=== PATIENT | female | born 1960 | race Caucasian/White ===

== ENCOUNTER 2020-03-13 08:43 | Inpatient (IN) | payer OTHER ==
[2020-03-13] VITALS (13 sets, daily range): BP systolic 128–168; BP diastolic 65–89
[~2020-03-13] VITALS: Ht 162.6 cm; Wt 66.0 kg
--- NOTE | 2020-03-13 09:04 | NUR ---
Lab at bedside.
[2020-03-13 09:23] LABS: BASOPHILS % (AUTO) 0.2 % (0-1); EOSINOPHILS % (AUTO) 0 % (0-6); HEMATOCRIT 40.3 % (35.0-45.0); HEMOGLOBIN 13.3 g/dl (12.0-16.0); LYMPHOCYTES # (AUTO) 1.2 X10'3 (1.1-4.8); LYMPHOCYTES % (AUTO) 5.8 % (21-51); MEAN CORPUSCULAR HEMOGLOBIN 29.9 PG (27.0-31.0); MEAN CORPUSCULAR VOLUME 90.5 FL (78-98); MEAN PLATELET VOLUME 6.8 FL (7.4-10.4); MONOCYTES # (AUTO) 2.2 X10'3 (0-0.9); NEUTROPHILS # (AUTO) 16.5 X10'3 (1.8-7.7); PLATELET COUNT 377 X10'3 (140-440); RED BLOOD COUNT 4.45 X10'6 (4.20-5.60); RED CELL DISTRIBUTION WIDTH 14.9 % (11.5-14.5); WHITE BLOOD COUNT 19.9 X10'3 (4.5-11.0)
[2020-03-13 09:26] LABS: URINE HCG NEGATIVE (NEG)
[2020-03-13 09:36] LABS: ALANINE AMINOTRANSFERASE 26 U/L (12-78); ALBUMIN 3.9 G/DL (3.4-5.0); ALKALINE PHOSPHATASE 83 IU/L (46-116); ANION GAP 10 (8-16); ASPARTATE AMINO TRANSFERASE 33 U/L (10-37); BILIRUBIN,TOTAL 1.2 MG/DL (0.1-1.0); BLOOD UREA NITROGEN 12 MG/DL (7-18); BUN/CREATININE RATIO 14.8 (6.6-38.0); CALCIUM 9.2 MG/DL (8.5-10.1); CHLORIDE 97 MMOL/L (99-107); CREATININE 0.81 MG/DL (0.40-0.90); GLUCOSE 142 MG/DL (70-104); LIPASE 104 U/L (73-393); POTASSIUM 3.3 MMOL/L (3.5-5.1); SODIUM 132 MMOL/L (135-145); TOTAL CARBON DIOXIDE 25.2 MMOL/L (24-32); eGFR 73 ML/MIN
[2020-03-13] MEDS ORDERED: ondansetron/PF 4mg/2ml inj IV ONE (09:40)
[2020-03-13] MEDS ORDERED: normal saline 1000ML IV soln IVB ONE (09:40)
[2020-03-13 09:58] LABS: PLATELET ESTIMATE NORMAL; TOTAL CELLS COUNTED 100
[2020-03-13 09:59] LABS: LARGE PLATELETS FEW
[2020-03-13] MEDS ORDERED: ceFOXitin 1 GM/D5W 50mL IVPB 1,000 GM in normal saline 100ml IV soln 100 ML IV ONE (10:00)
[2020-03-13] MEDS ORDERED: ceFOXitin 1 GM/D5W 50mL IVPB 50 ML IV ONE (10:05)
--- NOTE | 2020-03-13 10:07 | NUR ---
Pt refusing Zofran at this time.
[2020-03-13 10:28] LABS: CLARITY,URINE CLEAR (Clear); COLOR,URINE YELLOW (Yellow); GLUCOSE, URINE NEGATIVE (Neg); KETONES,URINE 15 mg/dl (Neg); LEUKOCYTE ESTERASE ,URINE NEGATIVE (Neg); NITRITES, URINE NEGATIVE (Neg); OCCULT BLOOD,URINE MODERATE (Neg); PROTEIN,URINE NEGATIVE (Neg); UROBILINOGEN,URINE 0.2 E.U/dL (0.2-1.0)
[2020-03-13 10:42] LABS: UA COLLECTION TYPE CLN CATCH MIDSTREAM
[2020-03-13 10:44] LABS: SQUAMOUS EPITHELIAL CELL,UR FEW /LPF (FEW)
[2020-03-13 10:46] LABS: BACTERIA,URINE 1+ /HPF (Neg); MUCUS STRANDS NONE SEEN /LPF (Neg); WBC,URINE 0-4 /HPF (0-4)
[2020-03-13 11:45] LABS: PARTIAL THROMBOPLASTIN TIME 31 SECONDS (22-32)
--- NOTE | 2020-03-13 12:06 | NUR ---
Pt's daughter is Maria E Katz [phone]. She is able to have information about the patient.
[2020-03-13] MEDS ORDERED: acetaminophen 650mg rectal suppository RC PRN (12:20)
[2020-03-13] MEDS ORDERED: HYDROcodone/acetaminophen 10/325mg tab PO PRN ×2 (12:20→16:45)
[2020-03-13] MEDS ORDERED: magnesium 4gm in 100ml NS 100 ML IV PRN (12:20)
[2020-03-13] MEDS ORDERED: ondansetron/PF 4mg/2ml inj IV PRN ×2 (12:20→15:00)
[2020-03-13] MEDS ORDERED: magnesium Cl slow-release 64mg tablet PO PRN (12:20)
[2020-03-13] MEDS ORDERED: morphine 2 MG/ML inj. syringe IV PRN ×3 (12:20→15:00)
[2020-03-13] MEDS ORDERED: diphenhydrAMINE 25mg capsule PO PRN (12:20)
[2020-03-13] MEDS ORDERED: magnesium 2GM in 50ml NS 50 ML IV PRN (12:20)
[2020-03-13] MEDS ORDERED: mag hydrox/Alum hydrox/simeth 30ml oral suspension PO PRN (12:20)
[2020-03-13] MEDS ORDERED: potassium Cl 20 mEq SR tablet PO PRN (12:20)
[2020-03-13] MEDS ORDERED: metoclopramide 5 mg/ml inj IV PRN (12:20)
[2020-03-13] MEDS ORDERED: bisacodyl 10mg suppository rectal RC PRN (12:20)
[2020-03-13] MEDS ORDERED: potassium CL 10mEq/100ml bag 100 ML IV PRN ×2 (12:20)
[2020-03-13] MEDS ORDERED: acetaminophen 325mg tablet PO PRN ×3 (12:20→12:55)
[2020-03-13] MEDS ORDERED: magnesium hydroxide 30ml (MOM) UD suspension PO PRN (12:20)
[2020-03-13] MEDS ORDERED: LEVO125T PO (12:21)
--- NOTE | 2020-03-13 12:34 | NUR ---
Let pt know that the hospitalist has excepted her for inpatient and that we are waiting on a bed assignment for her. Pt verbalized understanding and denies any needs at this time.
[2020-03-13 12:49] LABS: HEMOGLOBIN A1C 5.7 % (4.5-6.2)
[2020-03-13] MEDS: metroNIDAZOLE-Flagyl 500mg/NS 100 ML IV SCH ×2 (13:03→17:29)
[2020-03-13] MEDS: levoFLOXACIN-Levaquin 750MG/D5 150 ML IV SCH (14:14)
[2020-03-13] MEDS ORDERED: ceFAZolin 1000mg inj ONE (14:22)
[2020-03-13] MEDS ORDERED: BUPIVAcaine/PF 2.5 mg/ml (0.25%) 30ml vial ONE (14:23)
[2020-03-13] MEDS ORDERED: ringers solution, lacted 1,000 ML IV SCH (14:58)
[2020-03-13] MEDS ORDERED: meperidine/PF 25mg/ml syringe IV PRN ×3 (15:00)
[2020-03-13] MEDS ORDERED: proCHLORperazine 10 MG/2 ml inj IV PRN (15:00)
[2020-03-13] MEDS ORDERED: acetaminophen 1,000mg/100ml IV 100 ML IV PRN (15:00)
[2020-03-13] MEDS ORDERED: hydrALAZINE 20mg/ml inj. IV PRN (15:00)
[2020-03-13] MEDS ORDERED: sevoflurane 250ml liquid IH ONE (15:00)
[2020-03-13] MEDS ORDERED: morphine 4 MG/ML inj SYRINge IV PRN (15:00)
[2020-03-13] MEDS ORDERED: labetalol 20mg/4ml (5mg/ml) syringe IV PRN (15:00)
[2020-03-13] MEDS ORDERED: fentaNYL /PF 50mcg/ml 5ml ampule ONE (15:08)
[2020-03-13] MEDS ORDERED: midazolam 2 mg/2 ml injection ONE (15:08)
[2020-03-13] MEDS ORDERED: famotidine/PF 10 mg/ml inj IV ONE (15:11)
[2020-03-13] MEDS ORDERED: LIDOcaine 2% 5ml jelly ONE (15:14)
[2020-03-13] MEDS ORDERED: LIDOcaine 2% (20mg/ml) 5ml vial ONE (15:21)
[2020-03-13] MEDS ORDERED: propofol inj 20 ML IV ONE (15:21)
[2020-03-13] MEDS ORDERED: rocuronium 10mg/ml inj IV ONE (15:21)
[2020-03-13] MEDS ORDERED: ondansetron/PF 4mg/2ml inj ONE (15:28)
[2020-03-13] MEDS ORDERED: dexamethasone sod phosphate 4mg/ml inj. ONE (15:28)
[2020-03-13] MEDS ORDERED: neostigmine methylsulfate 1 MG/ML 10ml vial ONE (16:20)
[2020-03-13] MEDS ORDERED: glycopyrrolate 0.2mg/ml inj ONE (16:20)
[2020-03-13] MEDS ORDERED: acetaminophen 1,000mg/100ml IV 100 ML IV ONE (16:21)
--- NOTE | 2020-03-13 16:37 | NUR ---
Received from OR via SURGICAL BED , accompanied by Anesthesiologist JOLEEN and report given by Anesthesiolgist. PATIENT WITH 4 ABDOMINAL BANDAIDS PRESENT WITH STEVEN DRAIN IN PLACE. MAINTAINING SUCTION. VSS. 10L MASK ON WITH 99% SATURATIONS. 20G PIVI N RIGHT UE RUNNING LR AT 100.SCDS DONNED. Addendum: 03/13/20 at 1721 by Govind Pemberton RN, RN Amended: Links added.
--- NOTE | 2020-03-13 16:52 | NUR ---
RECEIVED REPORT FROM SONU VILLANUEVA
--- NOTE | 2020-03-13 17:15 | NUR ---
PT ARRIVED ON FLOOR SLEEPY BUT EASY TO ROUSE
--- NOTE | 2020-03-13 17:17 | NUR ---
Dc to floor to room where they were hooked to vitals and RN notified patient has arrived. Bed low, call light within reach, 2-3 rails up, vss, belongings placed in room. Care turned over to RN. Patient has met criteria for transfer to floor. Patient vss. Pain at a tolerable level. Transferred via bed RN DARLING PRESENT TO ACCEPT CARE. Addendum: 03/13/20 at 1721 by Govind Pemberton RN RN Amended: Links added.
--- NOTE | 2020-03-13 18:17 | NUR ---
RECEIVED REPORT FROM SONU HOWARD
--- NOTE | 2020-03-13 18:32 | NUR ---
Patient in room [facility]. I have received report from SONU Kasper and had the opportunity to ask questions and assume patient care.
[2020-03-13] MEDS: dextrose 5%-normal saline 1,000 ML IV SCH ×2 (18:40→20:20)
[2020-03-13] MEDS: potassium Cl 20 mEq SR tablet PO PRN ×2 (18:50→22:57)
[2020-03-13] MEDS: potassium CL 20mEq in D5-1/2NS 1,000 ML IV SCH (18:50)
[2020-03-13] MEDS: K and/or MAG REPLACEMENT MC SCH (19:55)
[2020-03-13] MEDS: heparin, porcine 5000 units/ml vial SQ SCH (20:04)
[2020-03-14] MEDS: metroNIDAZOLE-Flagyl 500mg/NS 100 ML IV SCH ×3 (00:05→15:31)
[2020-03-14] MEDS: ceFOXitin 1 GM/D5W 50mL IVPB 50 ML IV SCH ×2 (00:34→07:50)
[2020-03-14] MEDS: potassium CL 20mEq in D5-1/2NS 1,000 ML IV SCH ×2 (00:41→04:51)
[2020-03-14] MEDS ORDERED: HYDROcodone/acetaminophen 5mg/325mg tablet PO PRN (00:50)
[2020-03-14] MEDS: HYDROcodone/acetaminophen 5mg/325mg tablet PO PRN ×5 (00:57→21:31)
[2020-03-14 01:35] VITALS: BP 125/70
[2020-03-14] MEDS: potassium Cl 20 mEq SR tablet PO PRN (03:49)
[2020-03-14] MEDS: dextrose 5%-normal saline 1,000 ML IV SCH ×2 (04:20→11:47)
[2020-03-14 05:00] LABS: BASOPHILS # (AUTO) 0.1 X10'3 (0-0.2); BASOPHILS % (AUTO) 0.4 % (0-1); EOSINOPHILS % (AUTO) 0 % (0-6); HEMATOCRIT 36.5 % (35.0-45.0); LYMPHOCYTES # (AUTO) 0.5 X10'3 (1.1-4.8); LYMPHOCYTES % (AUTO) 2.7 % (21-51); MEAN CORPUSCULAR HEMOGLOBIN 30.1 PG (27.0-31.0); MEAN CORPUSCULAR HGB CONC 32.9 g/dL (33.0-36.5); MEAN CORPUSCULAR VOLUME 91.4 FL (78-98); MEAN PLATELET VOLUME 6.9 FL (7.4-10.4); MONOCYTES # (AUTO) 1.4 X10'3 (0-0.9); MONOCYTES % (AUTO) 7.2 % (2-12); NEUTROPHILS # (AUTO) 17.4 X10'3 (1.8-7.7); NEUTROPHILS % (AUTO) 89.7 % (42-75); PLATELET COUNT 329 X10'3 (140-440); RED BLOOD COUNT 3.99 X10'6 (4.20-5.60); RED CELL DISTRIBUTION WIDTH 15.1 % (11.5-14.5); WHITE BLOOD COUNT 19.4 X10'3 (4.5-11.0)
[2020-03-14 05:32] LABS: ALANINE AMINOTRANSFERASE 41 U/L (12-78); ALBUMIN 2.6 G/DL (3.4-5.0); ALBUMIN/GLOBULIN RATIO 0.7 (1.1-1.5); ALKALINE PHOSPHATASE 60 IU/L (46-116); ANION GAP 5 (8-16); ASPARTATE AMINO TRANSFERASE 32 U/L (10-37); BILIRUBIN,TOTAL 0.5 MG/DL (0.1-1.0); BLOOD UREA NITROGEN 7 MG/DL (7-18); BUN/CREATININE RATIO 7.9 (6.6-38.0); CALCIUM 8.4 MG/DL (8.5-10.1); CHLORIDE 106 MMOL/L (99-107); CHOL/HDL RATIO 1.9 (0.00-4.99); CHOLESTEROL 169 MG/DL (0-200); CREATININE 0.89 MG/DL (0.40-0.90); GLUCOSE 177 MG/DL (70-104); HDL CHOLESTEROL 88 MG/DL (35-60); LDL CHOLESTEROL 57 MG/DL (50-100); MAGNESIUM 2.1 MG/DL (1.5-2.4); PHOSPHORUS 2.4 MG/DL (2.3-4.5); POTASSIUM 4.9 MMOL/L (3.5-5.1); SODIUM 137 MMOL/L (135-145); TOTAL CARBON DIOXIDE 25.6 MMOL/L (24-32); TOTAL PROTEIN 6.3 G/DL (6.4-8.2); TRIGLYCERIDES 27 MG/DL (20-135); eGFR 65 ML/MIN
[2020-03-14 05:35] VITALS: BP 128/75
--- NOTE | 2020-03-14 06:21 | NUR ---
Problems reprioritized. Patient report given, questions answered & plan of care reviewed with SONU Au.
--- NOTE | 2020-03-14 06:59 | NUR ---
Patient in room [facility]. I have received report from Ella ASCENCIO and had the opportunity to ask questions and assume patient care.
[2020-03-14] MEDS: levoTHYROXINE 125mcg tablet PO SCH (07:48)
[2020-03-14] MEDS: heparin, porcine 5000 units/ml vial SQ SCH ×2 (07:49→20:00)
[2020-03-14] MEDS: K and/or MAG REPLACEMENT MC SCH ×2 (08:00→20:00)
[2020-03-14 08:59] VITALS: BP 138/68
[2020-03-14 11:00] VITALS: BP 159/79
[2020-03-14] MEDS: levoFLOXACIN-Levaquin 750MG/D5 150 ML IV SCH (11:50)
[2020-03-14] MEDS: ketorolac trometh. 30mg/ml inj. IV PRN ×2 (11:51→18:46)
[2020-03-14 18:00] VITALS: BP 130/67
[2020-03-14] MEDS: lactobacillus rhamnosus 10,000 MMU CELLS/CAPSULE PO SCH (20:07)
[2020-03-14 22:00] VITALS: BP 127/62
[2020-03-15] VITALS: BP 121/63
[2020-03-15] MEDS: ketorolac trometh. 30mg/ml inj. IV PRN (01:09)
[2020-03-15] MEDS: dextrose 5%-normal saline 1,000 ML IV SCH ×2 (03:45→15:34)
[2020-03-15 04:39] VITALS: BP 134/76
[2020-03-15 05:03] LABS: BASOPHILS % (AUTO) 0.2 % (0-1); EOSINOPHILS % (AUTO) 0.1 % (0-6); HEMOGLOBIN 10.3 g/dl (12.0-16.0); LYMPHOCYTES # (AUTO) 1.2 X10'3 (1.1-4.8); LYMPHOCYTES % (AUTO) 8.9 % (21-51); MEAN CORPUSCULAR HEMOGLOBIN 29.4 PG (27.0-31.0); MEAN CORPUSCULAR HGB CONC 32.4 g/dL (33.0-36.5); MEAN CORPUSCULAR VOLUME 90.9 FL (78-98); MEAN PLATELET VOLUME 6.9 FL (7.4-10.4); MONOCYTES # (AUTO) 1.1 X10'3 (0-0.9); MONOCYTES % (AUTO) 7.8 % (2-12); NEUTROPHILS # (AUTO) 11.6 X10'3 (1.8-7.7); PLATELET COUNT 302 X10'3 (140-440); RED BLOOD COUNT 3.52 X10'6 (4.20-5.60); RED CELL DISTRIBUTION WIDTH 15.2 % (11.5-14.5)
[2020-03-15 05:32] LABS: ALANINE AMINOTRANSFERASE 31 U/L (12-78); ALBUMIN 2.3 G/DL (3.4-5.0); ALBUMIN/GLOBULIN RATIO 0.7 (1.1-1.5); ALKALINE PHOSPHATASE 56 IU/L (46-116); ANION GAP 8 (8-16); ASPARTATE AMINO TRANSFERASE 18 U/L (10-37); BILIRUBIN,TOTAL 0.4 MG/DL (0.1-1.0); BLOOD UREA NITROGEN 7 MG/DL (7-18); BUN/CREATININE RATIO 9.2 (6.6-38.0); CALCIUM 8.5 MG/DL (8.5-10.1); CHLORIDE 107 MMOL/L (99-107); CREATININE 0.76 MG/DL (0.40-0.90); GLUCOSE 126 MG/DL (70-104); PHOSPHORUS 2.1 MG/DL (2.3-4.5); POTASSIUM 4.3 MMOL/L (3.5-5.1); SODIUM 139 MMOL/L (135-145); TOTAL CARBON DIOXIDE 24.1 MMOL/L (24-32); TOTAL PROTEIN 5.7 G/DL (6.4-8.2); eGFR 78 ML/MIN
--- NOTE | 2020-03-15 06:20 | NUR ---
Patient in room [facility]. I have received report from SONU Cobian and had the opportunity to ask questions and assume patient care.
[2020-03-15 06:30] VITALS: BP 148/81
[2020-03-15] MEDS: K and/or MAG REPLACEMENT MC SCH ×2 (06:59→19:51)
[2020-03-15] MEDS: lactobacillus rhamnosus 10,000 MMU CELLS/CAPSULE PO SCH ×2 (07:59→19:46)
[2020-03-15] MEDS: levoTHYROXINE 125mcg tablet PO SCH (07:59)
[2020-03-15] MEDS: metroNIDAZOLE-Flagyl 500mg/NS 100 ML IV SCH ×3 (07:59→17:14)
[2020-03-15] MEDS: heparin, porcine 5000 units/ml vial SQ SCH ×2 (08:00→19:41)
[2020-03-15] MEDS: HYDROcodone/acetaminophen 5mg/325mg tablet PO PRN ×2 (08:11→19:45)
[2020-03-15] MEDS: levoFLOXACIN-Levaquin 750MG/D5 150 ML IV SCH (10:58)
[2020-03-15 11:00] VITALS: BP 134/70
[2020-03-15 18:00] VITALS: BP 136/75
--- NOTE | 2020-03-15 18:15 | NUR ---
Problems reprioritized. Patient report given, questions answered & plan of care reviewed with SONU Fountain.
--- NOTE | 2020-03-15 18:23 | NUR ---
Patient in room [facility]. I have received report from Prachi ASCENCIO and had the opportunity to ask questions and assume patient care.
[2020-03-15 19:54] VITALS: BP 136/75
[2020-03-16] VITALS: BP 122/65
[2020-03-16] MEDS: metroNIDAZOLE-Flagyl 500mg/NS 100 ML IV SCH ×2 (00:49→07:54)
[2020-03-16 04:38] LABS: BASOPHILS % (AUTO) 0.3 % (0-1); EOSINOPHILS % (AUTO) 0.4 % (0-6); HEMATOCRIT 31.3 % (35.0-45.0); HEMOGLOBIN 10.1 g/dl (12.0-16.0); LYMPHOCYTES # (AUTO) 1.6 X10'3 (1.1-4.8); LYMPHOCYTES % (AUTO) 18.1 % (21-51); MEAN CORPUSCULAR HEMOGLOBIN 29.2 PG (27.0-31.0); MEAN CORPUSCULAR HGB CONC 32.2 g/dL (33.0-36.5); MEAN CORPUSCULAR VOLUME 90.7 FL (78-98); MEAN PLATELET VOLUME 6.7 FL (7.4-10.4); MONOCYTES # (AUTO) 0.8 X10'3 (0-0.9); MONOCYTES % (AUTO) 9.5 % (2-12); NEUTROPHILS # (AUTO) 6.2 X10'3 (1.8-7.7); NEUTROPHILS % (AUTO) 71.7 % (42-75); PLATELET COUNT 334 X10'3 (140-440); RED BLOOD COUNT 3.45 X10'6 (4.20-5.60); RED CELL DISTRIBUTION WIDTH 15.1 % (11.5-14.5); WHITE BLOOD COUNT 8.6 X10'3 (4.5-11.0)
[2020-03-16 04:54] LABS: ALANINE AMINOTRANSFERASE 25 U/L (12-78); ALBUMIN 2.2 G/DL (3.4-5.0); ALBUMIN/GLOBULIN RATIO 0.7 (1.1-1.5); ALKALINE PHOSPHATASE 57 IU/L (46-116); ANION GAP 5 (8-16); ASPARTATE AMINO TRANSFERASE 15 U/L (10-37); BILIRUBIN,TOTAL 0.4 MG/DL (0.1-1.0); BLOOD UREA NITROGEN 7 MG/DL (7-18); BUN/CREATININE RATIO 9.5 (6.6-38.0); CALCIUM 8.3 MG/DL (8.5-10.1); CHLORIDE 109 MMOL/L (99-107); CREATININE 0.74 MG/DL (0.40-0.90); GLUCOSE 93 MG/DL (70-104); MAGNESIUM 1.8 MG/DL (1.5-2.4); PHOSPHORUS 2.9 MG/DL (2.3-4.5); POTASSIUM 3.9 MMOL/L (3.5-5.1); SODIUM 140 MMOL/L (135-145); TOTAL PROTEIN 5.5 G/DL (6.4-8.2); eGFR 81 ML/MIN
--- NOTE | 2020-03-16 06:25 | NUR ---
Patient in room [facility]. I have received report from SONU Fountain and had the opportunity to ask questions and assume patient care.
[2020-03-16 06:30] VITALS: BP 151/72
--- NOTE | 2020-03-16 06:40 | NUR ---
Problems reprioritized. Patient report given, questions answered & plan of care reviewed with Prachi RN.
[2020-03-16] MEDS: K and/or MAG REPLACEMENT MC SCH (06:49)
[2020-03-16] MEDS: levoTHYROXINE 125mcg tablet PO SCH (07:54)
[2020-03-16] MEDS: lactobacillus rhamnosus 10,000 MMU CELLS/CAPSULE PO SCH (07:54)
[2020-03-16] MEDS: heparin, porcine 5000 units/ml vial SQ SCH (08:00)
[2020-03-16] MEDS: levoFLOXACIN-Levaquin 750MG/D5 150 ML IV SCH (09:42)
[2020-03-16] MEDS: HYDROcodone/acetaminophen 5mg/325mg tablet PO PRN ×2 (10:07→14:07)
[2020-03-16] MEDS ORDERED: METR-159 PO (10:35)
[2020-03-16] MEDS ORDERED: LACT1CAP26 PO (10:35)
[2020-03-16] MEDS ORDERED: LEVO500T89 PO (10:35)
[2020-03-16] MEDS ORDERED: HYDR-4383 PO (10:35)
[2020-03-16 11:00] VITALS: BP 143/80
--- NOTE | 2020-03-16 14:20 | NUR ---
DC inst provided to pt. IV DC'd, tip intact. All belongings sent w/pt. WC to front lobby.
== END 2020-03-16 14:20 | disposition home or self-care (01) | DRG 418 ==
LOC: ER 08:45 → ED HOLD 12:20 → SUR 3N 17:16
PROVIDERS: ADMIT Family Medicine; ATTEND Family Medicine
PROC: 0FT44ZZ Resection of Gallbladder, Percutaneous Endoscopic Approach (ICD-10-PCS; principal; 2020-03-13 15:06)
DX: K80.00 Calculus of gallbladder with acute cholecystitis without obstruction (principal); E87.1 Hypo-osmolality and hyponatremia; I10 Essential (primary) hypertension; E03.9 Hypothyroidism, unspecified; Z87.891 Personal history of nicotine dependence; Z83.3 Family history of diabetes mellitus; Z82.49 Family history of ischemic heart disease and other diseases of the circulatory system; D72.829 Elevated white blood cell count, unspecified
CPT/HCPCS: 99285; Z7506; Z7508; 36415; 74176; 76700; 80053; 80061; 81001; 81025; 83036; 83605; 83690; 83735; 84100; 84145; 84443; 85025; 85610; 85730; 87040; 87081; A4215; A4618; A7000; G0378; J0131; J0690; J0694; J1100; J1644; J1885; J1956; J2001; J2250; J2405; J2704; J2710; J3010; J3480; J3490; J7030; J7042; J7120